=== PATIENT | male | born 1960 | race Caucasian/White ===

== ENCOUNTER → 2021-06-20 00:38 | Outpatient (CLI) | payer OTHER, SELFPAY ==
[2021-06-20 20:36] LABS: SARS-CoV-2 RNA PCR Negative
== END ==
PROVIDERS: PCP Family Medicine; Visit Provider Internal Medicine Gastroenterology
DX: Z01.812 Encounter for preprocedural laboratory examination (principal); Z20.822 Contact with and (suspected) exposure to COVID-19
CPT/HCPCS: C9803; U0003; U0005

== ENCOUNTER 2021-06-23 00:43 | Day surgery (SDC) | payer OTHER, SELFPAY ==
[2021-06-07 13:16] VITALS: BMI 29.6
[2021-06-23 09:00] VITALS: BP 145/68; PULSE 76; RESP 18; TEMP 36; O2SAT 97; BMI 28.4
[2021-06-23] MEDS: LACTATED RINGERS 1,000 ML 150 ML IV CONT (09:17)
--- NOTE | 2021-06-23 09:31 | P.CONGI_ITS ---
Assessment and Plan Assessment and plan (1) Dysphagia: Code(s): R13.10 - Dysphagia, unspecified Status: Acute Assessment and Plan: Patient has history of dysphagia that lasted for approximately a month. Now improving. History is suggestive of either spasms are narrowing in the distal esophagus. Plan is for EGD to assess more thoroughly further recommendations will be given after endoscopy. (2) GERD (gastroesophageal reflux disease): Code(s): K21.9 - Gastro-esophageal reflux disease without esophagitis Status: Acute Assessment and Plan: Patient has a history of chronic GE reflux disease previously controlled with Zantac. He has recently stopped this medication and has no current significant heartburn. This will be evaluated with EGD. GI Consult Note Consult date/time: 06/23/21 09:31 HPI: Gavino Stuart is a 60 year old male Presents because of dysphagia. Patient has a distant history of heartburn. Previously took Zantac for approximately 5 years until it was taken off the market. He has only minimal heartburn at the present time period 3 months ago he had a brief episode of food catching in the mid substernal portion of the chest. This typically occurred with scrambled eggs. He took extra effort with liquids to make sure that food would pass distally into the stomach. He denies any regurgitation. He states that the symptoms have subsequently improved. Patient denies any bleeding or weight loss. He presents today because of dysphagia and history of GE reflux disease. An EGD will be performed Review of Systems Review of Systems: All systems reviewed & are unremarkable except as noted in HPI and below [facility] Past Medical History Medical History (Updated 06/23/21 @ 09:34 by Jordan Escamilla MD) Kidney stones Social History Social History Smoking packs per day: 1.5 Smoking cigarettes per day: 30.0 Years smoked: 15 Smoking pack-years: 22.50 Smoking status: Former smoker Tobacco type: cigarettes Alcohol intake: current Drinks per week: 6 Substance use type: does not use Living arrangements: with family Spiritual care concerns: No Meds Home Medications and Allergies Home Medications Medication Instructions Recorded Confirmed Type No Home Medications 06/07/21 06/23/21 History Allergies Allergy/AdvReac Type Severity Reaction Status Date / Time codeine Allergy Unknown Anaphylaxis Verified 06/23/21 08:49 Bumble Bee Allergy Severe HIVES Uncoded 06/23/21 08:49 Vital Signs Vital Signs - 24 hr 06/23/21 09:00 Temperature 96.8 F L Pulse Rate 76 Respiratory Rate 18 Blood Pressure 145/68 H Pulse Oximetry 97 Exam Narrative: physical exam reveals patient be alert. Vital signs stable. HEENT exam is unremarkable. Patient is anicteric. Lungs are clear to auscultation and percussion. Heart is without murmur or extra sounds. Abdominal exam bowel sounds are present soft nontender with no hepatosplenomegaly. Digital external rectal exam deferred at this time.
--- NOTE | 2021-06-23 09:37 | WPDANESEPPF ---
Anes - Initial Pre Proc Eval Procedure: Operation Date: 06/23/21 09:30 Proposed Procedures p Esophagogastroduodenoscopy - Jordan Escamilla MD Date/Time: 06/23/21 09:37 Surgeon: Jordan Escamilla MD Pre Op Diagnosis: Dysphagia Patient Data Age: 60 Gender: M Height: 1.86 m Weight: 98.2 kg Last Vital Signs Temp 96.8 F L 06/23/21 09:00 Pulse 76 06/23/21 09:00 Resp 18 06/23/21 09:00 BP 145/68 H 06/23/21 09:00 Pulse Ox 97 06/23/21 09:00 Allergies Allergy/AdvReac Type Severity Reaction Status Date / Time codeine Allergy Unknown Anaphylaxis Verified 06/23/21 08:49 Bumble Bee Allergy Severe HIVES Uncoded 06/23/21 08:49 Home Medications Medication Instructions Recorded Confirmed Type No Home Medications 06/07/21 06/23/21 History Patient hx anesthesia problems: none Family hx anesthesia problems: none [facility] Past Medical History Medical History (Updated 06/23/21 @ 09:34 by Jordan Escamilla MD) Kidney stones Social History Social History Smoking packs per day: 1.5 Smoking cigarettes per day: 30.0 Years smoked: 15 Smoking pack-years: 22.50 Smoking status: Former smoker Tobacco type: cigarettes Alcohol intake: current Drinks per week: 6 Substance use type: does not use Living arrangements: with family Spiritual care concerns: No Anes - Eval Final PreProcedure Day of Procedure 06/23/21 09:37 Patient weight: overweight Heart: regular rate and rhythm Lungs: clear to auscultation Airway: Mallampati scale class III Neurological: alert and oriented Last oral intake: >/= 8 hours ASA classification: II Emergent: no Anesthetic plan: proceed Anesthesia type and monitoring: general GIVS and standard monitoring Informed Consent: The patient's anesthetic plan and its attendant risks and benefits were discussed with the patient/family/POA. Questions were solicited and answers provided to the satisfaction of the patient/family/POA.
[2021-06-23 09:54] VITALS: BP 124/82; PULSE 74; RESP 20; O2SAT 98
[2021-06-23 10:04] VITALS: BP 130/82; PULSE 68; RESP 18; O2SAT 99
[2021-06-23 10:14] VITALS: BP 134/88; PULSE 70; RESP 20; O2SAT 99
== END 2021-06-23 10:24 | disposition home or self-care (01) ==
PROVIDERS: PCP Family Medicine; Visit Provider Internal Medicine Gastroenterology
PROC: 0DJ08ZZ Inspection of Upper Intestinal Tract, Via Natural or Artificial Opening Endoscopic (ICD-10-PCS; CPT 43235; principal; 2021-06-23 09:30)
DX: R13.19 Other dysphagia (principal); K21.00 Gastro-esophageal reflux disease with esophagitis, without bleeding; Q39.4 Esophageal web; K44.9 Diaphragmatic hernia without obstruction or gangrene; Z87.891 Personal history of nicotine dependence
CPT/HCPCS: 43450; C9803; J2704; J7120; U0003; U0005